=== PATIENT | female | born 1985 | race Caucasian/White ===

== ENCOUNTER 2022-01-11 12:11 | Outpatient (CLI) | payer OTHER, SELFPAY ==
[2022-01-11 14:00] LABS: Basophils Absolute Auto 0.03 K/uL (0.00-0.30); Basophils Percent Auto 0.4 % (0.0-3.0); Eosinophils Absolute Auto 0.09 K/uL (0.00-0.50); Eosinophils Percent Auto 1.1 % (0.0-7.0); Hematocrit 40.7 % (33.0-51.0); Hemoglobin* 13.5 gm/dL (12.0-16.0); Immature Granulocytes Abs Auto 0.01 K/uL (0.00-0.30); Immature Granulocytes Pct Auto 0.1 %; Lymphocytes Absolute Auto 2.98 K/uL (0.90-2.90); Lymphocytes Percent Auto 37.9 % (20-44); Mean Corpuscular HGB Conc 33 gm/dL (32-36); Mean Corpuscular Hemoglobin 28 pg (26-34); Mean Corpuscular Volume 85 fL (80-100); Monocytes Percent Auto 7.4 % (0.0-11.0); Neutrophils Absolute Auto 4.17 K/uL (1.7-7.0); Neutrophils Percent Auto 53.1 % (42.0-72.0); Platelet Count* 377 K/uL (140-440); RDW Coefficient of Variation % 12.5 % (11.5-15.5); Red Blood Count 4.79 m/uL (4.00-5.20); White Blood Count* 7.86 K/uL (4.50-11.00)
[2022-01-11 14:01] LABS: Slide Review Reflex No
[2022-01-11 14:11] LABS: Chloride* 102 mmol/L (96-114); Potassium* 4.2 mmol/L (3.6-5.1); Sodium* 140 mmol/L (135-149)
[2022-01-11 14:14] LABS: Creatinine* 0.6 mg/dL (0.5-1.5); Estimated Glomerular Filt Rate 118 ml/min
[2022-01-11 14:15] LABS: Blood Urea Nitrogen* 12 mg/dL (5-24); Calcium* 9.4 mg/dL (8.4-10.6); Carbon Dioxide* 26 mmol/L (20-32); Glucose* 76 mg/dL (60-115)
[2022-01-11 14:18] LABS: C Reactive Protein* 0.5 mg/dL (0.5-1.0)
== END 2022-01-11 12:12 | disposition home or self-care (01) ==
PROVIDERS: PCP Family Medicine; Visit Provider Family Medicine
DX: R10.2 Pelvic and perineal pain (principal); E03.9 Hypothyroidism, unspecified; E55.9 Vitamin D deficiency, unspecified
CPT/HCPCS: 80048; 85025; 86140

== ENCOUNTER 2022-01-22 15:49 | Outpatient (CLI) | payer OTHER, SELFPAY ==
--- NOTE | 2022-01-22 16:00 | CRLHL7_ITS ---
For Patients: As a result of the Century Cures Act, medical imaging exams and procedure reports are released immediately into your electronic medical record. You may view this report before your referring provider. If you have questions, please contact your health care provider. CLINICAL HISTORY: Pelvic pain TECHNIQUE: Real time, kamara scale images were acquired of the pelvis using a transabdominal and transvaginal approach. Color Doppler analysis was performed of the ovaries. FINDINGS: Uterus measures 7.6 x 3.3 by 5cm. Endometrium measures 9 millimeters. Right ovary measures 2 point by 1.5 x 2.9 centimeters left ovary measures 2.1 x 1.7 x 1.8 centimeters. Normal blood flow to both ovaries. IMPRESSION: Unremarkable pelvic ultrasound. Dictated by Emeyln Clinton MD @ 01/24/2022 5:43:43 AM (Electronically Signed)
== END 2022-01-22 15:50 | disposition home or self-care (01) ==
PROVIDERS: PCP Family Medicine; Visit Provider Family Medicine
DX: R10.2 Pelvic and perineal pain (principal)
CPT/HCPCS: 76830; 76856; 93976

== ENCOUNTER 2023-10-01 08:52 | Outpatient (CLI) | payer OTHER, SELFPAY | END 2023-10-01 08:53 | disposition home or self-care (01) | PROVIDERS: PCP Family Medicine; Visit Provider Family Medicine | DX: Z00.00 Encounter for general adult medical examination without abnormal findings (principal); E55.9 Vitamin D deficiency, unspecified; E03.9 Hypothyroidism, unspecified; R53.83 Other fatigue | CPT/HCPCS: 80048; 84439; 84443; 85025; 86376 ==

== ENCOUNTER 2024-10-01 08:13 | Outpatient (CLI) | payer OTHER, SELFPAY | END 2024-10-01 08:14 | disposition home or self-care (01) | LOC: FBOREF 08:13 | PROVIDERS: PCP Family Medicine; Visit Provider Family Medicine | DX: E03.9 Hypothyroidism, unspecified (principal) | CPT/HCPCS: 84443 ==